=== PATIENT | male | born 1990 | race Asian ===

== ENCOUNTER 2020-11-05 07:45 | Emergency (ER) | payer MEDICAID, OTHER ==
[~2020-11-05] VITALS: Ht 175.3 cm; Wt 89.4 kg
--- NOTE | 2020-11-05 08:05 | NUR ---
[facility] accompany pt to ER.
[2020-11-05] MEDS ORDERED: ALPR1TAB7 PO (08:13)
--- NOTE | 2020-11-05 08:15 | NUR ---
MD at bedside examining patient. Verbal order to start IV fluid initiated.
[2020-11-05 08:29] LABS: EOSINOPHILS # (AUTO) 0.2 K/uL (0.0-0.7); MONOCYTES # (AUTO) 0.7 K/uL (2.0-10.0)
[2020-11-05] MEDS ORDERED: IV NORMAL SALINE 1000 ML BAG IV ONE (08:30)
[2020-11-05 08:37] LABS: BASOPHILS % (AUTO) 0.3 % (0.0-2.0); CARBON DIOXIDE 26 mmol/L (21-32); CHLORIDE 103 mmol/L (98-107); CREATININE 1.6 mg/dL (0.6-1.3); GLUCOSE 124 mg/dL (74-106); HEMATOCRIT 40.4 % (36.7-47.1); HEMOGLOBIN 14.5 g/dL (12.5-16.3); LYMPHOCYTES # (AUTO) 3.3 K/uL (20.0-40.0); LYMPHOCYTES % (AUTO) 39.4 % (20.5-51.5); MEAN CORPUSCULAR HEMOGLOBIN 33.8 uug (23.8-33.4); MEAN CORPUSCULAR HGB CONC 36 g/dL (32.5-36.3); MONOCYTES % (AUTO) 8.2 % (0.0-11.0); NEUTROPHILS # (AUTO) 4.2 K/uL (1.8-8.9); NEUTROPHILS % (AUTO) 50.1 % (38.5-71.5); PLATELET COUNT (AUTO) 202 K/uL (152-348); POTASSIUM 3.7 mmol/L (3.5-5.1); UREA NITROGEN, BLOOD 20 mg/dL (7-18); WHITE BLOOD COUNT (AUTO) 8.3 K/uL (3.6-10.2)
[2020-11-05 08:38] LABS: ETHANOL < 3 MG/DL (0-0)
[2020-11-05 08:43] LABS: ALANINE AMINOTRANSFERASE 27 U/L (16-63); ALKALINE PHOSPHATASE 57 U/L (50-136); ASPARTATE AMINOTRANSFERASE 28 U/L (15-37); BILIRUBIN,DIRECT 0.2 mg/dL (0.0-0.2); BILIRUBIN,TOTAL 0.6 mg/dL (0.2-1.0); TOTAL PROTEIN, SERUM 7.9 g/dL (6.4-8.2)
--- NOTE | 2020-11-05 08:52 | NUR ---
Pt monitored, VS is stable, as recorded. However, patient is lethargic. Able to arouse but unable to be fully alert. Urine sample pending, IV fluids almost finished but patient unable to follow commands. Head elavated, and no signs of acute distress.
--- NOTE | 2020-11-05 10:27 | NUR ---
Attempted to wake the patient up again for urine sample. He remains lethargic, but arousable from sleep and VS are stable.
[2020-11-05] MEDS ORDERED: IV LACTATED RINGERS SOLUTION 1,000 ML IV PRN (10:30)
--- NOTE | 2020-11-05 11:47 | NUR ---
Pt still unable to give urine sample, very lethargic. ordered straight cath. Carried out. 300cc urine output, micheline colored. Sent sample to lab.
[2020-11-05 11:52] LABS: *BILIRUBIN,URIN 1+ (NEGATIVE); *BLOOD, URINE 1+ (NEGATIVE); *CLARITY,URINE SLIGHTLY CLOUDY (CLEAR); *COLOR,URINE YELLOW (YELLOW); *KETONES,URINE TRACE (NEGATIVE); *UROBILINOGEN,URINE 0.2 E.U./dl (NORMAL); LEUKOCYTE ESTERASE ,URINE NEGATIVE (NEGATIVE); NITRITE, URINE POSITIVE (NEGATIVE); UGLUCOSE NEGATIVE (NEGATIVE)
--- NOTE | 2020-11-05 11:53 | NUR ---
URINE COLLECTED VIA IN AND OUT CATHETER. SAMPLE SENT TO LAB.
[2020-11-05 12:03] LABS: *AMPHETAMINE, URINE POSITIVE (NEGATIVE); *CANNABINOID, URINE NEGATIVE (NEGATIVE); *COCCAINE, URINE POSITIVE (NEGATIVE); *OPIATE, URINE NEGATIVE (NEGATIVE); *PHENCYCLIDINE SCREEN,URINE NEGATIVE (NEGATIVE)
[2020-11-05] MEDS ORDERED: CEFTRIAXONE 1 G in IV DEXTROSE 5% 50 ML IV ONE (12:15)
[2020-11-05] MEDS ORDERED: CEFTRIAXONE /D5W 50ML IVPB **ER PYXIS IV ONE (12:30)
[2020-11-05 14:44] LABS: BACTERIA,URINE FEW /HPF (NONE SEEN); RBC,URINE 0-3 /HPF (0-3)
[2020-11-05 14:45] LABS: SQUAMOUS EPITHELIAL CELL,UR FEW /HPF (NONE SEEN)
[2020-11-05 14:46] LABS: URINE AMORPHOUS PHOSPHATES FEW /HPF
--- NOTE | 2020-11-05 15:26 | NUR ---
Pt continues to be sleeping, hard to arouse, when awake, not fully alert. VS monitored and stable at this time. Srivastava snot appear to be in acute distress.
--- NOTE | 2020-11-05 15:50 | NUR ---
Pt is now fully awake, AO X 4. Does not recollect moments from this morning. He is actively looking for his phone. Assistance provided.
[2020-11-05] MEDS ORDERED: NITR100C11 PO (16:08)
--- NOTE | 2020-11-05 16:09 | NUR ---
Pt has been cleared for DC to home. Written and verbal after care instructions given. Patient verbalizes understanding of instructions. Stressed follow up or return to ER for worsening s/s. Patient discharged to home in stable condition, left ER in steady gait. Pt has plans of walking to where his car is parked and where he left his phone.
[2020-11-05 16:15] VITALS: BP 95/65
== END 2020-11-05 16:16 | disposition home or self-care (01) ==
LOC: ER 07:45
DX: F19.929 Other psychoactive substance use, unspecified with intoxication, unspecified (principal); N39.0 Urinary tract infection, site not specified; N28.9 Disorder of kidney and ureter, unspecified; F41.0 Panic disorder [episodic paroxysmal anxiety]; Z79.899 Other long term (current) drug therapy; R00.0 Tachycardia, unspecified
CPT/HCPCS: 36415; 80048; 80076; 80307; 80320; 81001; 82550; 85025; 87077; 87086; 93005; 96361; 96365; 99285; J0696; J7120; A4663; G0480